=== PATIENT | male | born 1985 | race Caucasian/White ===

== ENCOUNTER 2016-06-14 17:11 | Emergency (ER) | payer BC, OTHER ==
[~2016-06-14] VITALS: Ht 170.2 cm; Wt 71.1 kg
[2016-06-14 17:25] VITALS: TEMP 37.9; Ht 170.2 cm; Wt 71.1 kg
[2016-06-14] MEDS ORDERED: DEXT1LIQ58 PO (18:42)
[2016-06-14 19:43] VITALS: BP 138/64; PULSE 62; O2SAT 97
[2016-06-14] MEDS ORDERED: OSELTAMIVIR PHOSPHATE 75 MG CAP PO ONE (20:00)
[2016-06-14] MEDS ORDERED: OSEL75CA12 PO (20:02)
--- NOTE | 2016-06-14 23:45 | EMERGENCY ROOM VISIT NOTE ---
History First contact with patient: 17:50 Chief Complaint: OTHER COMPLAINT Stated Complaint: FLU CHECK History of Present Illness The patient is a 31 year old male who presents to the Emergency Room with complaints of fatigue and malaise for the past one day. The patient primarily presents to the emergency department for exposure to influenza a. Evidently his mother, whom he lives with, was diagnosed this afternoon with influenza A and is currently in the ICU. He states that many members of the family have been ill with similar symptoms. The patient has not had significant relief with DayQuil today. He does not have chronic medical disease and rates his current discomfort a 5/10. Review of Systems More than 10 systems were reviewed and otherwise negative with the exception of history of present illness. Past Medical/Surgical History No chronic medical disease Family History No pertinent family history Social History Smoking Status: Never Smoker Housing Status: lives with family Current/Historical Medications Scheduled Oseltamivir (Tamiflu), 75 MG PO BID Scheduled PRN Dextromethorphan-Phenylephrine (Vicks Dayquil Cold & Flu), 1 DOSE PO UD PRN for Cold/Flu Symptoms Allergies Coded Allergies: No Known Allergies (Unverified , 08/13/14) Physical Exam Vital Signs Date Time Temp Pulse Resp B/P Pulse Ox O2 Delivery O2 Flow Rate FiO2 06/14/16 19:43 62 18 138/64 97 Room Air 06/14/16 17:25 37.9 87 18 128/79 97 Room Air Pain Rating (0-10): 0 Physical Exam VITALS: Vitals are noted on the nurse's note and reviewed by myself. Vital signs stable. GENERAL: Well-developed, well-nourished, white male, who is in no acute distress and resting comfortably. Patient is cooperative with the examination. HEAD: Normocephalic atraumatic. EARS: External ear normal. External auditory canals clear, tympanic membranes pearly patterson without erythema or effusion bilaterally. EYES: Pupils equal round and reactive to light and accommodation. Conjunctivae without injection, sclerae without icterus. Extraocular movements intact. NOSE: Patent, turbinates without inflammation or discharge. MOUTH: Mucous membranes moist. Tonsils are not enlarged. Pharynx without erythema, blood, or exudate. Uvula midline. Airway patent. NECK: Supple without nuchal rigidity. No lymphadenopathy. No thyromegaly. Cervical spine is nontender. HEART: Regular rate and rhythm without murmurs gallops or rubs. LUNGS: Clear to auscultation bilaterally without wheezes, rales or rhonchi. No retractions or accessory muscle use. Medical Decision & Procedures Laboratory Results Test 06/14/16 18:09 Influenza Type A Antigen POS for Influ A (NEG) Influenza Type B Antigen Neg for Influ B (NEG) Medications Administered Medications (Trade) Dose Ordered Sig/Abraham Route Start Time Stop Time Status Last Admin Dose Admin Oseltamivir Phosphate (Tamiflu Cap) 75 mg NOW ONCE PO 06/14/16 20:00 06/14/16 20:01 DC 06/14/16 20:00 75 MG ED Course Physical exam and history were performed. Nursing notes and EMR were reviewed. Patient appears to have an exposure to influenza a. He has not felt well today. The patient does not appear toxic on exam. Influenza swab was performed , and he is positive for influenza A. The patient was started on Tamiflu here in the department. He was instructed on utilizing [id number] analgesics and antipyretics. His a follow with his primary care physician next week and was otherwise invited back to the ER anytime with new, worsening, or concerning symptoms. The chart was completed utilizing [email or web address] Speech Voice Recognition Software. Grammatical errors, random word insertions, pronoun errors, and incomplete sentences are an occasional consequence of this system due to software limitations, ambient noise, and hardware issues. Any formal questions or concerns about the content, text, or information contained within the body of this dictation should be directly addressed to the provider for clarification. . Medical Decision Differential diagnosis: Etiologies such as viral syndrome, otitis, pharyngitis, pneumonia, influenza, meningitis, urinary tract infection, sepsis, bacteremia, as well as others were entertained. Impression Primary Impression: Influenza A Departure Information Dispostion Home / Self-Care Condition GOOD Prescriptions Oseltamivir (Tamiflu) 75 Mg Cap 75 MG PO BID for 5 Days, #10 CAP Prov: Hans Harry PA-C 06/14/16 Forms HOME CARE DOCUMENTATION FORM, IMPORTANT VISIT INFORMATION Patient Instructions My [facility], ED Flu Additional Instructions You were seen and evaluated today on an emergency basis only. This is not a substitute for, or an effort to provide, complete comprehensive medical care. It is not possible to recognize and treat all injuries or illnesses in a single emergency department visit. For this reason it is recommended that you followup with your primary care physician next week for ongoing care and evaluation. For baseline pain relief you may alternate ibuprofen and acetaminophen every 4 hours for pain control. Take 600 mg ibuprofen (Advil) and then 4 hours later take 1000 mg acetaminophen (Tylenol). Do not take more than 3000 mg acetaminophen in a single day. Take Tamiflu 75 mg twice daily for the next 5 days. This will help shorten the amount of time that you are ill. You are likely very contagious. Influenza A can make people very sick. Avoid contact with the very old and very young. You should also try to avoid people with chronic medical disease. You are welcome to return to the emergency department anytime with new, worsening, or concerning symptoms.
== END 2016-06-14 20:13 | disposition home or self-care (01) ==
LOC: C.EDB 17:11 → C.EDD 20:13
DX: J09.X2 Influenza due to identified novel influenza A virus with other respiratory manifestations (principal)

== ENCOUNTER 2016-10-10 19:13 | Emergency (ER) | payer SELFPAY ==
[~2016-10-10] VITALS: Ht 170.2 cm; Wt 68.6 kg
[~2016-10-10 19:13] MED LIST: DEXT1LIQ58 PO
[2016-10-10 19:16] VITALS: TEMP 36.6; Ht 170.2 cm; Wt 68.6 kg
--- NOTE | 2016-10-10 19:52 | EMERGENCY ROOM VISIT NOTE ---
History Report prepared by Gurinderibnga: Kobe Burton Under the Supervision of: Dr. Juancarlos Katz M.D. First contact with patient: 19:39 Chief Complaint: SYNCOPE Stated Complaint: DIZZINESS, PASSING OUT Nursing Triage Summary: pt states he had a syncopal episode "about an hour ago." family member states he was "working out in the sun all day." and "passed out for a couple minutes." pt denies pmh or daily Rx medications. pt denies blurry vision, numbness, tingling at this time. states this has never happened to him previously. witness denies pt shaking while passed out. pt states he did hit his neck and back when he fell. pt alert and oriented x4. breathing WNL at time of assessment. History of Present Illness The patient is a 31 year old male who presents to the Emergency Room with complaints of a resolved episode of syncope that occurred about one hour prior to arrival. The patient hit the back of his head and his back. 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 He felt fine while he was working. The patient admits that he probably hasn't been drinking enough fluids. Per girlfriend, the patient was standing when he passed out and landed against a chair. He became dizzy just prior to passing out, which is the last thing he remembers. The patient currently has a headache and some neck pain. He denies fevers, visual changes, chest pain, shortness of breath or pain with breathing, abdominal pain, black or bloody stools, weakness or numbness. The patient has never passed out like this before. He is not a drinker. Source of History: patient, spouse/significant other Onset: one hour prior to arrival Position: other (global) Quality: other (syncope) Timing: resolved Associated Symptoms: + LOC, + headache, + neck pain, No SOB, No abdominal pain, No chest pain, No fevers, No hematochezia, No melena, No numbness, No weakness Review of Systems See HPI for pertinent positives & negatives. A total of 10 systems reviewed and were otherwise negative. Past Medical & Surgical Medical Problems: (1) Clavicle pain (2) Influenza A Old medical records were reviewed. Nurse's notes were reviewed and I agree with. Family History No pertinent family history Social History Smoking Status: Never Smoker Marital Status: in relationship Housing Status: lives with significant other Occupation Status: employed Current/Historical Medications Scheduled Multivitamins/Minerals (Mvi With Minerals), 1 TAB PO DAILY Allergies Coded Allergies: No Known Allergies (Unverified , 08/13/14) Physical Exam Vital Signs Date Time Temp Pulse Resp B/P Pulse Ox O2 Delivery O2 Flow Rate FiO2 10/10/16 21:42 56 18 109/71 99 10/10/16 21:16 61 18 122/57 95 Room Air 10/10/16 19:41 63 10/10/16 19:37 62 16 117/73 68 120/64 73 123/74 10/10/16 19:16 36.6 64 18 125/72 100 Room Air Physical Exam General: Non ill-appearing young male in no acute distress, breathing comfortably on room air. Normal speech. [place] Coma Score 15 HEENT: Normal cephalic atraumatic. Pupils are equal round and reactive to light. Extraocular movements are intact. Oropharynx is pink with moist mucous membranes. No swelling of the mouth lips or tongue. Neck: Supple with a midline trachea. No meningeal signs or stiffness, no JVD or bruits. No Stridor. Chest: Clear to auscultation bilaterally. No wheezes or rhonchi. No increased work of breathing. Heart: regular rate and rhythm. Abdomen: Soft nontender, nondistended without rebound guarding or rigidity. Extremities: No cyanosis clubbing or edema. No calf tenderness or assymetry Spine/Back. Non tender to palpation. No CVA tenderness Skin: Good turgor without rashes. Neurologic exam: Cranial nerves two through 12 are intact. Motor and sensation are intact and symmetrical throughout. Medical Decision & Procedures ER Provider Diagnostic Interpretation: X-ray results as stated below per interpretation by me and the radiologist: CERVICAL SPINE 5 VIEWS CLINICAL HISTORY: Syncope. Neck pain. FINDINGS: AP, lateral, bilateral oblique, and odontoid views of the cervical spine are obtained. No prior studies are available for comparison at the time of dictation. The skeletal structures are well mineralized. There is no radiographic evidence of fracture or subluxation. The odontoid process and lateral masses appear intact on the open mouth view. The spinolaminar line is preserved. Vertebral body height and alignment are maintained. There is straightening of the cervical lordosis. The spinous processes appear intact. The intervertebral disc spaces are normal. There is no evidence of neuroforaminal stenosis on the oblique views. The prevertebral soft tissues are within normal limits. Visualized apical lung parenchyma appears clear. IMPRESSION: There is no radiographic evidence of fracture or subluxation involving the cervical spine. Electronically signed by: Severiano Montez M.D. 10/10/2016 8:38 PM Dictated Date/Time: 10/10/2016 8:37 PM Laboratory Results 10/10/16 20:00 Red Blood Count 4.94, Mean Corpuscular Volume 86.0, Mean Corpuscular Hemoglobin 30.4, Mean Corpuscular Hemoglobin Concent 35.3, Mean Platelet Volume 9.4, Neutrophils (%) (Auto) 64.2, Lymphocytes (%) (Auto) 19.9, Monocytes (%) (Auto) 6.3, Eosinophils (%) (Auto) 9.1, Basophils (%) (Auto) 0.4, Neutrophils # (Auto) 5.99, Lymphocytes # (Auto) 1.86, Monocytes # (Auto) 0.59, Eosinophils # (Auto) 0.85, Basophils # (Auto) 0.04 10/10/16 20:00 Test 10/10/16 20:00 White Blood Count 9.34 K/uL (4.8-10.8) Red Blood Count 4.94 M/uL (4.7-6.1) Hemoglobin 15.0 g/dL (14.0-18.0) Hematocrit 42.5 % (42-52) Mean Corpuscular Volume 86.0 fL (80-100) Mean Corpuscular Hemoglobin 30.4 pg (25-34) Mean Corpuscular Hemoglobin Concent 35.3 g/dl (32-36) Platelet Count 330 K/uL (130-400) Mean Platelet Volume 9.4 fL (7.4-10.4) Neutrophils (%) (Auto) 64.2 % Lymphocytes (%) (Auto) 19.9 % Monocytes (%) (Auto) 6.3 % Eosinophils (%) (Auto) 9.1 % Basophils (%) (Auto) 0.4 % Neutrophils # (Auto) 5.99 K/uL (1.4-6.5) Lymphocytes # (Auto) 1.86 K/uL (1.2-3.4) Monocytes # (Auto) 0.59 K/uL (0.11-0.59) Eosinophils # (Auto) 0.85 K/uL (0-0.5) Basophils # (Auto) 0.04 K/uL (0-0.2) RDW Standard Deviation 38.8 fL (36.4-46.3) RDW Coefficient of Variation 12.2 % (11.5-14.5) Immature Granulocyte % (Auto) 0.1 % Immature Granulocyte # (Auto) 0.01 K/uL (0.00-0.02) Anion Gap 5.0 mmol/L (3-11) Est Creatinine Clear Calc Drug Dose 106.3 ml/min Estimated GFR () 124.0 Estimated GFR (Non- 107.0 BUN/Creatinine Ratio 13.6 (10-20) Calcium Level 9.2 mg/dl (8.5-10.1) Laboratory studies as stated above per my review. Medications Administered Medications (Trade) Dose Ordered Sig/Abraham Route Start Time Stop Time Status Last Admin Dose Admin Sodium Chloride (Nss 1000ml) 1,000 ml @ 999 mls/hr Q1H1M STAT IV 10/10/16 19:55 10/10/16 20:55 DC 10/10/16 20:07 999 MLS/HR ECG Indication: syncope Rate (beats per minute): 65 Rhythm: sinus with SA Findings: no acute ischemic change, no ectopy Comparison ECG Date: no prior available ED Course 1944: Past medical records reviewed. The patient was evaluated in room B10, and a complete history and physical examination were performed. 1954: NSS 1000 ml @ 200 mls/hr, NSS 1000 ml @ 999 mls/hr. 2129: Upon reevaluation, the patient is doing well. I discussed the results and treatment plan with him. He verbalized agreement of the treatment plan. The patient was discharged home. Medical Decision Differential diagnosis includes vasovagal episode, arrhythmia, cardiac disease, anemia, electrolyte or metabolic abnormality. Medication reconciliation : I attest that I personally reviewed the patient's medication list Hypertension screening: Patient was found to be normotensive and does not need specific follow-up on routine This patient comes in as described above. He was working outside all day and did not drink much. He was eating his head shaved evening and leaned backwards and felt dizzy and passed out some. He has minimal neck and back pain and minimal headache and does not think that he is head. He has a normal neurologic exam. CAT scan of his head is unremarkable. He's had no chest pain or shortness of breath and looks and feels well at this point. IV access was established and he was given a 1 L IV normal saline bolus. Blood work was unremarkable. He is not anemic. He has no significant white count or fever to suggest infection. He has no acute electrolyte or metabolic abnormalities. X- rays of the neck were unremarkable. He is feeling good and would like to be discharged. I think this was a vasovagal episode. She should Drink plenty of fluids he should return to ER if: chest pain, recurrence of symptoms, worsening of symptoms, any new problems concerns. Should follow-up with his regular doctor next this rechecked. The patient his girlfriend are happy with the plan he was discharged home. Impression Primary Impression: Syncope Scribe Attestation The scribe's documentation has been prepared under my direction and personally reviewed by me in its entirety. I confirm that the note above accurately reflects all work, treatment, procedures, and medical decision making performed by me. Departure Information Dispostion Home / Self-Care Referrals Haris Akins M.D. (PCP) Forms HOME CARE DOCUMENTATION FORM, IMPORTANT VISIT INFORMATION Patient Instructions My [facility] Additional Instructions Rest Drink plenty of fluids Return if: worsening of symptoms, fever, chest pain, shortness breath, any new problems or concerns. Follow-up with your doctor for recheck in the next couple days Problem Qualifiers Primary Impression: Syncope Syncope type: vasovagal syncope Qualified Codes: R55 - Syncope and collapse
[2016-10-10] MEDS ORDERED: SODIUM CHLORIDE 0.9% 1000ML 1,000 ML IV ONE (19:55)
[2016-10-10] MEDS ORDERED: SODIUM CHLORIDE 0.9% 1000ML 1,000 ML IV STA (19:55)
[2016-10-10] MEDS ORDERED: MULT-513 PO (19:58)
[2016-10-10 20:19] LABS: BASO % 0.4 %; BASO ABS # 0.04 K/uL (0-0.2); COMPLETE YES; EOS % 9.1 %; HEMATOCRIT 42.5 % (42-52); IG% 0.1 %; LYMPH % 19.9 %; LYMPH ABS # 1.86 K/uL (1.2-3.4); MEAN CORPUSCULAR HEMOGLOBIN 30.4 pg (25-34); MEAN CORPUSCULAR HGB CONC 35.3 g/dl (32-36); MEAN PLATELET VOLUME 9.4 fL (7.4-10.4); MONO % 6.3 %; NEUT % 64.2 %; PLATELET COUNT 330 K/uL (130-400); RED BLOOD COUNT 4.94 M/uL (4.7-6.1); WHITE BLOOD COUNT 9.34 K/uL (4.8-10.8)
[2016-10-10 20:37] LABS: BUN/CREATININE RATIO 13.6 (10-20); CALCIUM 9.2 mg/dl (8.5-10.1); CREATININE 0.95 mg/dl (0.60-1.40); POTASSIUM 3.6 mmol/L (3.5-5.1)
--- NOTE | 2016-10-10 20:39 | DIAGNOSTIC IMAGING REPORT ---
CERVICAL SPINE 5 VIEWS CLINICAL HISTORY: Syncope. Neck pain. FINDINGS: AP, lateral, bilateral oblique, and odontoid views of the cervical spine are obtained. No prior studies are available for comparison at the time of dictation. The skeletal structures are well mineralized. There is no radiographic evidence of fracture or subluxation. The odontoid process and lateral masses appear intact on the open mouth view. The spinolaminar line is preserved. Vertebral body height and alignment are maintained. There is straightening of the cervical lordosis. The spinous processes appear intact. The intervertebral disc spaces are normal. There is no evidence of neuroforaminal stenosis on the oblique views. The prevertebral soft tissues are within normal limits. Visualized apical lung parenchyma appears clear. IMPRESSION: There is no radiographic evidence of fracture or subluxation involving the cervical spine. Electronically signed by: Severiano Montez M.D. 10/10/2016 8:38 PM Dictated Date/Time: 10/10/2016 8:37 PM
[2016-10-10 21:42] VITALS: BP 109/71; PULSE 56; O2SAT 99
== END 2016-10-10 21:42 | disposition home or self-care (01) ==
LOC: C.EDB 19:14
DX: R55 Syncope and collapse (principal)